=== PATIENT | female | born 1975 | race Caucasian/White ===

== ENCOUNTER 2023-11-03 07:12 | Day surgery (SDC) | payer OTHER ==
[2023-10-25 17:16] VITALS: BMI 33.5
[2023-11-03] MEDS ORDERED: ONDANSETRON 4 MG/2 ML VIAL IVPUSH PRN (08:23)
[2023-11-03] MEDS ORDERED: ACETAMINOPHEN 325 MG TABLET (FP) PO PRN (08:23)
[2023-11-03] MEDS ORDERED: oxyCODONE HCL 5 MG TABLET PO PRN (08:23)
[2023-11-03] MEDS ORDERED: LACTATED RINGERS SOLUTION 1,000 ML IV SCH (08:30)
[2023-11-03] MEDS ORDERED: BUPIVACAINE HCL/PF 0.5% (5MG/ML) 10 ML VIAL ONE ×3 (08:48→10:09)
[2023-11-03] MEDS ORDERED: MIDAZOLAM HCL 2 MG/2 ML SINGLE DOSE VIAL ONE ×2 (08:58→09:26)
[2023-11-03] MEDS ORDERED: ACETAMINOPHEN INJECTION 100 ML IVPB ONE (08:58)
[2023-11-03] MEDS ORDERED: FENTANYL CITRATE/PF 50 MCG/ML VIAL ONE (08:58)
[2023-11-03] MEDS ORDERED: PROPOFOL 40 ML ONE (09:04)
[2023-11-03] MEDS ORDERED: ceFAZolin SODIUM 1 GM VIAL ONE ×2 (09:11)
[2023-11-03] MEDS ORDERED: DEXAMETHASONE SOD PHOSPHATE 4 MG/1 ML VIAL ONE (09:22)
[2023-11-03] MEDS ORDERED: KETOROLAC TROMETHAMINE 30 MG/1 ML VIAL ONE (09:22)
[2023-11-03] MEDS ORDERED: ONDANSETRON 4 MG/2 ML VIAL ONE (09:22)
[2023-11-03] MEDS ORDERED: PROPOFOL 20 ML ONE (09:27)
[2023-11-03 10:43] VITALS: RESP 17
[2023-11-03 10:46] VITALS: TEMP 97.1
[2023-11-03 11:26] VITALS: BP 108/66; PULSE 53
== END 2023-11-03 11:25 | disposition home or self-care (01) ==
LOC: FASU 07:12
PROVIDERS: ATTEND Podiatrist Foot Surgery
PROC: 0QBN0ZZ Excision of Right Metatarsal, Open Approach (ICD-10-PCS; principal; 2023-11-03 09:17)
PROC: 0JBQ0ZZ Excision of Right Foot Subcutaneous Tissue and Fascia, Open Approach (ICD-10-PCS; 2023-11-03 09:17)
DX: M25.774 Osteophyte, right foot (principal); R22.41 Localized swelling, mass and lump, right lower limb
CPT/HCPCS: 73630-TC-RT-FY; 81025; 88304-TC; J0131